=== PATIENT | male | born 1935 | race African-American/Black ===

== ENCOUNTER 2020-07-06 00:58 | Inpatient (IN) ==
[2020-07-06] MEDS ORDERED: GLUCAGON 1 MG VIAL IM PRN (07:58)
[2020-07-06] MEDS ORDERED: ONDANSETRON 4 MG/2 ML VIAL IV PRN (07:58)
[2020-07-06] MEDS ORDERED: DEXTROSE 50% 25 GM/50 ML VIAL IV PRN (07:58)
[2020-07-06 08:36] LABS: Basophils % 0.3 % (0.0-0.8); Eosinophils # 0.1 10*3/uL (0.0-0.87); Eosinophils % 2.1 % (0.00-10.9); Hematocrit 29.6 VOL% (42.0-52.0); Hemoglobin 9.9 GM/DL (14.0-18.0); Immature Granulocytes % 0.6 %; Immature Granulocytes Absolute 0.02 #; Lymphocytes # 0.9 10*3/uL (1.4-4.0); Mean Corpuscular HGB Conc 33.4 GM/DL (32-36); Mean Corpuscular Volume 97.7 FL (87-102); Mean Platelet Volume 11.2 FL (9.6-12.0); Platelet Count 187 T/CUMM (130-400); Red Blood Count 3.03 MC/CUMM (3.8-5.5); Red Cell Distribution Width 15.8 % (9.3-17.3); White Blood Count 3.3 T/CUMM (4-12)
[2020-07-06 09:02] LABS: Calcium 8.8 MG/DL (8.5-10.1); Osmolality,Calculated 284.4 MOS/KG (273-304)
[2020-07-06] MEDS: PANTOPRAZOLE 40 MG TABLET PO SCH (10:37)
[2020-07-06] MEDS ORDERED: COLCHICINE 0.6 MG CAPSULE PO SCH (11:00)
[2020-07-06] MEDS ORDERED: amLODIPine 5 MG TABLET PO SCH (11:00)
[2020-07-06] MEDS: FUROSEMIDE 40 MG/4 ML VIAL IV SCH (12:16)
[2020-07-06] MEDS: DOXAZOSIN 4 MG TABLET PO SCH (12:16)
[2020-07-06] MEDS: FENOFIBRATE 145 MG TABLET PO SCH (12:17)
[2020-07-06] MEDS: GABAPENTIN 300 MG CAPSULE PO SCH ×2 (16:16→21:59)
[2020-07-06 18:17] LABS: Apearance,Urine CLEAR (Clear); Bilirubin,Urine Negative (Negative); Blood, Urine Small mg/dL (Negative); Glucose,Urine (UA) Negative (Negative); Ketones,Urine Negative (Negative); Nitrite,Urine Negative (Negative); Protein,Urine Negative; RBC,Urine 1 /HPF (0-4); Urine Color Straw (Yellow); Urine Specific Gravity 1.006 (1.001-1.035); Urine Urobilinogen < 2.0 EU/DL (0.2-1.0)
[2020-07-06] MEDS: ACETAMINOPHEN 325 MG TABLET PO PRN (21:59)
[2020-07-06] MEDS: tiZANidine 4 MG TABLET PO SCH (21:59)
[2020-07-07 05:22] LABS: Basophils % 0.7 % (0.0-0.8); Eosinophils # 0.1 10*3/uL (0.0-0.87); Hematocrit 26.8 VOL% (42.0-52.0); Hemoglobin 9.1 GM/DL (14.0-18.0); Immature Granulocytes % 0.3 %; Immature Granulocytes Absolute 0.01 #; Lymphocytes # 0.9 10*3/uL (1.4-4.0); Lymphocytes % 30.8 % (21.2-54.2); Mean Corpuscular Volume 96.1 FL (87-102); Mean Platelet Volume 11.5 FL (9.6-12.0); Monocytes % 13.7 % (1.7-12.7); Neutrophils % 51.5 % (38.7-73.9); Platelet Count 166 T/CUMM (130-400); Red Blood Count 2.79 MC/CUMM (3.8-5.5); Red Cell Distribution Width 15.9 % (9.3-17.3)
[2020-07-07 05:53] LABS: Albumin 2.4 G/DL (3.4-5.0); Bilirubin,Total 0.8 MG/DL (0.2-1.0); Calcium 8.4 MG/DL (8.5-10.1); Osmolality,Calculated 282.5 MOS/KG (273-304); Risk Ratio 2.92; Thyroid Stimulating Hormone 2.85 uIU/ml (0.358-3.74); Total Protein 6.4 G/DL (6.4-8.3)
[2020-07-07] MEDS ORDERED: DIGOXIN 0.5 MG/2 ML AMP IV ONE (08:27)
[2020-07-07] MEDS: DOXAZOSIN 4 MG TABLET PO SCH (09:47)
[2020-07-07] MEDS: FUROSEMIDE 40 MG/4 ML VIAL IV SCH (09:47)
[2020-07-07] MEDS: ENOXAPARIN 100 MG/ML SYRINGE SUBCUT SCH ×2 (09:47→21:22)
[2020-07-07] MEDS: FENOFIBRATE 145 MG TABLET PO SCH (09:48)
[2020-07-07] MEDS: GABAPENTIN 300 MG CAPSULE PO SCH ×3 (09:48→21:25)
[2020-07-07] MEDS: METOPROLOL TARTRATE 25 MG TABLET PO SCH ×2 (09:48→21:27)
[2020-07-07] MEDS: PANTOPRAZOLE 40 MG TABLET PO SCH (09:48)
[2020-07-07] MEDS ORDERED: AMIODARONE INJ 150 MG in DEXTROSE 5% 100 ML IV ONE (11:28)
[2020-07-07] MEDS ORDERED: AMIODARONE INJ 450 MG in DEXTROSE 5% 241 ML IV SCH (11:30)
[2020-07-07] MEDS: ASCORBIC ACID 500 MG TABLET PO SCH ×2 (12:01→21:26)
[2020-07-07] MEDS: AMIODARONE INJ 450 MG in DEXTROSE 5% 241 ML IV SCH ×2 (18:52→21:23)
[2020-07-07] MEDS: ACETAMINOPHEN 325 MG TABLET PO PRN (21:26)
[2020-07-07] MEDS: tiZANidine 4 MG TABLET PO SCH (21:27)
[2020-07-08 05:40] LABS: Basophils % 0.6 % (0.0-0.8); Eosinophils # 0.1 10*3/uL (0.0-0.87); Eosinophils % 2.2 % (0.00-10.9); Hematocrit 26.5 VOL% (42.0-52.0); Immature Granulocytes % 0.3 %; Immature Granulocytes Absolute 0.01 #; Lymphocytes % 27.7 % (21.2-54.2); Mean Corpuscular Volume 95.7 FL (87-102); Mean Platelet Volume 11.7 FL (9.6-12.0); Monocytes % 13.3 % (1.7-12.7); Neutrophils % 55.9 % (38.7-73.9); Platelet Count 169 T/CUMM (130-400); Red Blood Count 2.77 MC/CUMM (3.8-5.5); Red Cell Distribution Width 16.1 % (9.3-17.3); White Blood Count 3.6 T/CUMM (4-12)
[2020-07-08 06:25] LABS: Albumin 2.5 G/DL (3.4-5.0); Calcium 8.5 MG/DL (8.5-10.1); Osmolality,Calculated 281.8 MOS/KG (273-304); Total Protein 6.3 G/DL (6.4-8.3)
[2020-07-08] MEDS: PANTOPRAZOLE 40 MG TABLET PO SCH (10:45)
[2020-07-08] MEDS: ASPIRIN EC 81 MG TABLET PO SCH (10:45)
[2020-07-08] MEDS: GABAPENTIN 300 MG CAPSULE PO SCH ×3 (10:45→21:22)
[2020-07-08] MEDS: METOPROLOL TARTRATE 25 MG TABLET PO SCH ×2 (10:45→21:20)
[2020-07-08] MEDS: FENOFIBRATE 145 MG TABLET PO SCH (10:46)
[2020-07-08] MEDS: ENOXAPARIN 100 MG/ML SYRINGE SUBCUT SCH ×2 (10:46→21:22)
[2020-07-08] MEDS: FUROSEMIDE 40 MG/4 ML VIAL IV SCH (10:46)
[2020-07-08] MEDS: ASCORBIC ACID 500 MG TABLET PO SCH ×2 (10:46→21:23)
[2020-07-08] MEDS: DOXAZOSIN 4 MG TABLET PO SCH (10:46)
[2020-07-08] MEDS: AMIODARONE INJ 450 MG in DEXTROSE 5% 241 ML IV SCH (12:38)
[2020-07-08] MEDS: tiZANidine 4 MG TABLET PO SCH (21:23)
[2020-07-09] MEDS: AMIODARONE INJ 450 MG in DEXTROSE 5% 241 ML IV SCH ×2 (05:20→06:26)
[2020-07-09 06:25] LABS: Basophils % 0.5 % (0.0-0.8); Eosinophils # 0.1 10*3/uL (0.0-0.87); Eosinophils % 2.9 % (0.00-10.9); Hematocrit 27.3 VOL% (42.0-52.0); Hemoglobin 9.1 GM/DL (14.0-18.0); Immature Granulocytes % 0.3 %; Immature Granulocytes Absolute 0.01 #; Lymphocytes % 27.9 % (21.2-54.2); Mean Corpuscular HGB Conc 33.3 GM/DL (32-36); Mean Corpuscular Volume 96.8 FL (87-102); Mean Platelet Volume 11.7 FL (9.6-12.0); Monocytes % 13.4 % (1.7-12.7); Platelet Count 178 T/CUMM (130-400); Red Blood Count 2.82 MC/CUMM (3.8-5.5); Red Cell Distribution Width 16.2 % (9.3-17.3); White Blood Count 3.7 T/CUMM (4-12)
[2020-07-09 06:50] LABS: Albumin 2.6 G/DL (3.4-5.0); Bilirubin,Total 0.8 MG/DL (0.2-1.0); Calcium 8.5 MG/DL (8.5-10.1); Total Protein 6.4 G/DL (6.4-8.3)
[2020-07-09] MEDS ORDERED: SODIUM CHLORIDE 0.9% 500 ML IV ONE (07:23)
[2020-07-09] MEDS ORDERED: AMIODARONE 200 MG TABLET PO SCH (09:00)
[2020-07-09] MEDS ORDERED: propofoL 200 MG/20 ML VIAL IV ONE (09:11)
[2020-07-09] MEDS ORDERED: LIDOCAINE 2% 5 ML VIAL ONE (09:11)
[2020-07-09] MEDS: ENOXAPARIN 100 MG/ML SYRINGE SUBCUT SCH (10:20)
[2020-07-09] MEDS: PANTOPRAZOLE 40 MG TABLET PO SCH (10:20)
[2020-07-09] MEDS: DOXAZOSIN 4 MG TABLET PO SCH (10:20)
[2020-07-09] MEDS: ASPIRIN EC 81 MG TABLET PO SCH (10:20)
[2020-07-09] MEDS: GABAPENTIN 300 MG CAPSULE PO SCH ×2 (10:20→15:18)
[2020-07-09] MEDS: ASCORBIC ACID 500 MG TABLET PO SCH (10:20)
[2020-07-09] MEDS: FENOFIBRATE 145 MG TABLET PO SCH (10:21)
[2020-07-09 12:42] VITALS: BP 111/59
[2020-07-09] MEDS ORDERED: APIXABAN 2.5 MG TABLET PO SCH (21:00)
== END 2020-07-09 15:49 | disposition home health service (06) | DRG 309 ==
LOC: N.TELES → SUATTDRO 07:31
PROVIDERS: ADMIT Internal Medicine; ATTEND Internal Medicine